=== PATIENT | male | born 1985 | race African-American/Black ===

== ENCOUNTER 2017-11-18 16:11 | Emergency (ER) | payer BC ==
--- NOTE | 2017-11-18 16:34 | EDM.PDOC ---
ED HPI GENERAL MEDICAL PROBLEM - General Chief Complaint: General Stated Complaint: CHILLS, LEFT FOOT PAIN Time Seen by Provider: 11/18/17 16:25 Source of Information: Reports: Patient, Other ([facility]). Denies: Old Records (No [facility] records available) History Limitations: Reports: No Limitations - History of Present Illness INITIAL COMMENTS - FREE TEXT/NARRATIVE: The patient was brought to the emergency room via transport vehicle from [facility] for evaluation of a 3 week history of intermittent fever and chills with temperature not measured. No known exposure to infection with no recent use of antipyretic medication. He has been having some occasional left foot and lower leg warm sensation and possible swelling with no history of recent significant injury, etc.. His arthritis is otherwise stable with no previous history of gout. The patient denies any chest pain/pressure, heart flutter, dizziness, orthostasis, orthopnea, diaphoresis, paresthesias, recent decreased exercise tolerance, or any other anginal-type symptoms. No recent history of abdominal pain, nausea, diarrhea, melena, gross hematochezia, or any food intolerance, including fatty foods, etc. although he has been having some heartburn recently likely secondary to noncompliance with his previous Protonix and/or Prilosec, with normal bowel movement earlier today. He also complains of some mild dysuria without gross hematuria, colic, etc.. He denies any recent cough dyspnea wheezing, etc. Onset: Gradual Duration: Week(s): (3 weeks as above) Location: Reports: Abdomen (Heartburn), Lower Extremity, Left (As above). Denies: Head, Face, Neck, Chest, Back, Pelvis, Upper Extremity, Left, Upper Extremity, Right, Lower Extremity, Right, Generalized, Radiates to Quality: Reports: Ache, Burning, Dull, Same as Previous Episode Severity: Mild Improves with: Reports: None Worsens with: Reports: None Context: Reports: Other (As above) Associated Symptoms: Reports: Fever/Chills. Denies: Chest Pain, Cough, cough w sputum, Diaphoresis, Headaches, Loss of Appetite, Nausea/Vomiting, Seizure, Shortness of Breath, Syncope, Weakness Treatments PRIMARY SCHOOL PRINCIPAL: Reports: Other (see below) (None) Epigastric Pain Score (Numeric/FACES): 6 - Related Data Allergies Allergy/AdvReac Type Severity Reaction Status Date / Time No Known Allergies Allergy Verified 11/18/17 16:21 Home Meds: Home Meds Cholecalciferol (Vitamin D3) [Vitamin D3] 2,000 unit PO DAILY 11/18/17 [History] Omeprazole Magnesium [Prilosec Otc] 20 mg PO ACBREAKFAST #30 tablet. 11/18/17 [Rx] Past Medical History HEENT History: Reports: None. Denies: Allergic Rhinitis, Hard of Hearing, Impaired Vision, Retinal Detachment Cardiovascular History: Reports: Other (See Below). Denies: Afib, Aneurysm, Arrhythmia, Blood Clots/VTE/DVT, CAD, Heart Murmur, High Cholesterol, Hypertension, [place], Syncope Other Cardiovascular History: He doesn't know cholesterol status although history of fatty liver as below.. Respiratory History: Reports: None. Denies: Asthma, COPD, Intubation, Difficult , Intubation, Previous, PE, Pneumothorax, Pulmonary Fibrosis, Sleep Apnea, TB Gastrointestinal History: Reports: Chronic Constipation, GERD, Other (See Below) . Denies: Celiac Disease, Cholelithiasis, Chronic Diarrhea, Fecal Incontinence , Gastritis, GI Bleed, Hepatitis, Inflammatory Bowel Disease, Irritable Bowel Syndrome, Jaundice, Pancreatitis, PUD Other Gastrointestinal History: LFTs elevation secondary to fatty liver. Genitourinary History: Reports: Chronic Renal Insuffiency, Renal Calculus, Other (See Below). Denies: Acute Renal Failure, BPH, Retention, Urinary, STD, Urinary Incontinence, UTI, Recurrent Other Genitourinary History: Stage III chronic renal insufficiency. Urolithiasis side unknown with spontaneous passage Musculoskeletal History: Reports: Arthritis, Back Pain, Chronic, Gout, Other ( See Below). 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 Denies: Cerebral Aneurysms, Concussion, Head Trauma, Migraines, Seizure Psychiatric History: Reports: None. Denies: Abuse, Victim of, ADD, ADHD, Addiction, Anxiety, Depression, Psych Hospitalization(s), PTSD, Suicide Attempt , Suicidal Ideation Endocrine/Metabolic History: Reports: Vitamin D Deficiency. Denies: Diabetes, Type I, Diabetes, Type II, Diabetes Mellitus, Type 3c, Hypothyroidism, IDDM Hematologic History: Reports: Other (See Below). Denies: Anemia, Blood Transfusion(s), Iron Deficiency Other Hematologic History: Nonspecific thrombocytopenia. Immunologic History: Denies: None, AIDS, HIV, SLE Oncologic (Cancer) History: Reports: None. Denies: Basal Cell Carcinoma, Hodgkin's Lymphoma, Leukemia, Lymphoma, Malignant Melanoma, Non-Hodgkin's Lymphoma, Squamous Cell Carcinoma Dermatologic History: Reports: None. Denies: Eczema, Psoriasis - Infectious Disease History Infectious Disease History: Reports: None. Denies: C-Difficile, Chicken Pox, Helicobacter Pylori, Measles, Meningitis, Mononucleosis, MRSA, Mumps, Rheumatic Fever, Rubella, Scarlet Fever, Shingles, TB, VRE - Past Surgical History Head Surgeries/Procedures: Reports: None HEENT Surgical History: Reports: Oral Surgery, Other (See Below). Denies: Adenoidectomy, Eye Surgery, Laser Surgery, LASIK, Myringotomy w Tube(s), Naso- Sinus Surgery, Tonsillectomy Other HEENT Surgeries/Procedures: Tooth extraction Cardiovascular Surgical History: Reports: None. Denies: Varicose Respiratory Surgical History: Reports: None. Denies: Thoracentesis GI Surgical History: Reports: EGD, Other (See Below). Denies: Appendectomy, Cholecystectomy, Colonoscopy, Hernia, Abdominal, Hernia, Inguinal, Hernia Repair /Other Other GI Surgeries/Procedures: EGD on 12/30/16. Male Surgical History: Reports: Circumcision. Denies: Vasectomy Other Male Surgeries/Procedures: Circumcision as an . Endocrine Surgical History: Reports: None. Denies: Thyroid Biopsy Neurological Surgical History: Reports: None. Denies: C-Spine, Discectomy, Laminectomy, Lumbar Spine, Sacral Spine, Spinal Fusion, Thoracic Spine, Vertebroplasty Musculoskeletal Surgical History: Reports: None. Denies: Arthroscopic Procedure , Carpal Tunnel, Ganglion Cyst, Joint Replacement, ORIF, Shoulder Surgery Oncologic Surgical History: Reports: None Dermatological Surgical History: Reports: None - Past Imaging History Past Imaging History: Reports: CAT Scan (CT of the abdomen and pelvis on 03/23/16 ), Ultrasound (Abdominal ultrasound on 06/15/14) Social & Family History - Family History Cardiac: Reports: Hypertension, Other (See Below) Other Cardiac Family History: Parents with hypertension. - Tobacco Use Smoking Status *Q: Never Smoker Tobacco Use Within Last Twelve Months: No Used Tobacco, but Quit: No Smoking Cessation Information Provided To Patient: No Second Hand Smoke Exposure: No Second Hand Smoke Education Provided: No - Caffeine Use Caffeine Use: Reports: None. Denies: Coffee, Energy Drinks, Soda, Tea - Alcohol Use Alcohol Use History: Yes Days Per Week of Alcohol Use: 0 Number of Drinks Per Day Comment: No previous DWIs, problems with alcohol abuse , etc. Alcohol Use in Last Twelve Months: No - Recreational Drug Use Recreational Drug Use: No Drug Use in Last 12 Months: No Recreational Drug Type: Denies: Amphetamines (Speed), Cocaine, Heroin, Inhalants (Glues, Solvents, Aerosols), LSD (Acid), Marijuana/Hashish, Methamphetamine, Morphine, Oxycodone - Living Situation & Occupation Living situation: Reports: with Significant Other (No children) Occupation: Employed ([employer]) ED ROS GENERAL - Review of Systems Review Of Systems: ROS reveals no pertinent complaints other than HPI. ED EXAM, GENERAL - Physical Exam Exam: See Below Exam Limited By: Language Barrier (Mild) General Appearance: Alert, WD/WN, No Apparent Distress Eye Exam: Bilateral Eye: EOMI, Normal Inspection (No nystagmus), PERRL Ears: Normal External Exam, Normal Canal, Hearing Grossly Normal, Normal TMs Nose: Normal Inspection, Normal Mucosa, No Blood Throat/Mouth: Normal Inspection, Normal Lips, Normal Teeth, Normal Gums, Normal Oropharynx, Normal Voice, No Airway Compromise. No: Dysphagia, Perioral Cyanosis Head: Atraumatic, Normocephalic. No: Facial Swelling, Facial Tenderness, Sinus Tenderness Neck: Normal Inspection, Supple, Non-Tender, Full Range of Motion. No: Carotid Bruit, Lymphadenopathy (L), Lymphadenopathy (R), Thyromegaly Respiratory/Chest: No Respiratory Distress, Lungs Clear, Normal Breath Sounds, No Accessory Muscle Use, Chest Non-Tender. No: Pleural Rub, Retractions Cardiovascular: Normal Peripheral Pulses, Regular Rate, Rhythm (Occasional borderline bradycardia), No Edema, No Gallop, No JVD, No Murmur, No Rub. No: Gallop/S3, Gallop/S4, Friction Rub Peripheral Pulses: 2+: Radial (L), Radial (R), Dorsalis Pedis (L), Dorsalis Pedis (R) GI/Abdominal: Normal Bowel Sounds, Soft, Non-Tender, No Organomegaly, No Distention, No Abnormal Bruit, No Mass. No: Guarding (Male) Exam: Deferred Rectal (Males) Exam: Deferred Back Exam: Normal Inspection, Full Range of Motion. No: CVA Tenderness (L), CVA Tenderness (R), Muscle Spasm Extremities: Normal Range of Motion, No Pedal Edema, Normal Capillary Refill, Leg Pain (Minimal localized swelling with borderline palpation pain over the lateral dorsal surface of the fifth metatarsal of the left foot with no local warming, erythema, etc.). No: Radha's Sign Neurological: Alert, Oriented, CN II-XII Intact, Normal Cognition, Normal Gait, Normal Reflexes, No Motor/Sensory Deficits Psychiatric: Normal Affect, Normal Mood Skin Exam: Warm, Dry, Intact, Normal Color, No Rash. No: Wound/Incision Lymphatic: No Adenopathy Course - Vital Signs Last Recorded V/S: Last Vital Signs Temp 36.8 C 11/18/17 16:12 Pulse 52 L 11/18/17 16:12 Resp 16 11/18/17 16:12 BP 140/87 11/18/17 16:12 Pulse Ox 99 11/18/17 16:12 Vital Signs - 24 hr 11/18/17 16:12 Temperature [ 36.8 C Temporal] Pulse, 52 L Peripheral [ Left Pulse Oximetry] Respiratory 16 Rate Blood Pressure 140/87 [Right Upper Arm] O2 Sat by Pulse 99 Oximetry - Orders/Labs/Meds Orders: Active Orders 24 hr Category Date Time Status CULTURE URINE [RM] Routine Lab 11/18/17 16:38 Ordered URINALYSIS W/MICROSCOPIC [UA W/MICROSCOPIC] [URIN] Lab 11/18/17 16:55 Ordered Routine Obtain Past Medical Record [OM.PC] Routine Oth 11/18/17 16:34 Active Labs: Laboratory Tests 11/18/17 11/18/17 11/18/17 Range/Units 16:50 16:50 16:50 WBC 5.5 (4.0-10.2) K/uL RBC 7.04 H (4.33-5.41) M/uL Hgb 15.1 (13.1-16.8) g/dL Hct 45.5 (39.0-49.0) % MCV 64.6 L (84.0-98.0) fL MCH 21.4 L (28.2-33.3) pg MCHC 33.2 (31.7-36.0) g/dL RDW 18.2 H (11.2-14.1) % Plt Count 164 (150-350) K/uL Neut % (Auto) 43.9 L (45.0-80.0) % Lymph % (Auto) 35.0 (10.0-50.0) % [place] % (Auto) 8.4 (2.0-14.0) % Eos % (Auto) 12.3 H (0.0-5.0) % Baso % (Auto) 0.4 (0.0-2.0) % Neut # (Auto) 2.39 (1.40-7.00) K/uL Lymph # (Auto) 1.91 (0.50-3.50) K/uL [place] # (Auto) 0.46 (0.00-1.00) K/uL Eos # (Auto) 0.67 H (0.00-0.50) K/uL Baso # (Auto) 0.02 (0.00-0.20) K/uL Sodium 142 (136-145) mmol/L Potassium 3.7 (3.5-5.1) mmol/L Chloride 103 (98-107) mmol/L Carbon Dioxide 29.9 (21.0-32.0) mmol/L BUN 12 (7-18) mg/dL Creatinine 1.43 H (0.51-1.17) mg/dL Est Cr Clr Drug Dosing 76.57 mL/min Estimated GFR (MDRD) 57 mL/min Glucose 92 (74-106) mg/dL Lactic Acid (0.4-2.0) mmol/L Uric Acid 6.0 (2.6-7.2) mg/dL Calcium 9.5 (8.5-10.1) mg/dL Total Bilirubin 0.8 (0.2-1.0) mg/dL AST 25 (15-37) U/L ALT 17 (12-78) U/L Alkaline Phosphatase 65 (46-116) IU/L Creatine Kinase (26-308) U/L Creatine Kinase Index (0.0-2.5) % CK-MB (CK-2) (0.00-3.60) ng/mL Total Protein 8.2 (6.4-8.2) g/dL Albumin 4.2 (3.4-5.0) g/dL Specimen Type Urine Color Urine Appearance Urine pH (5.0-9.0) Ur Specific [place] (1.005-1.030) Urine Protein (NEGATIVE) mg/dL Urine Glucose (UA) (NEGATIVE) mg/dL Urine Ketones (NEGATIVE) mg/dL Urine Occult Blood (NEGATIVE) Urine Nitrite (NEGATIVE) Urine Bilirubin (NEGATIVE) Urine Urobilinogen (0.2-1.0) E.U./dL Ur Leukocyte Esterase (NEGATIVE) Urine RBC /HPF Urine WBC /HPF Ur Epithelial Cells /LPF Urine Bacteria (NONE TO FEW) /HPF 11/18/17 11/18/17 11/18/17 Range/Units 16:50 16:50 16:55 WBC (4.0-10.2) K/uL RBC (4.33-5.41) M/uL Hgb (13.1-16.8) g/dL Hct (39.0-49.0) % MCV (84.0-98.0) fL MCH (28.2-33.3) pg MCHC (31.7-36.0) g/dL RDW (11.2-14.1) % Plt Count (150-350) K/uL Neut % (Auto) (45.0-80.0) % Lymph % (Auto) (10.0-50.0) % [place] % (Auto) (2.0-14.0) % Eos % (Auto) (0.0-5.0) % Baso % (Auto) (0.0-2.0) % Neut # (Auto) (1.40-7.00) K/uL Lymph # (Auto) (0.50-3.50) K/uL [place] # (Auto) (0.00-1.00) K/uL Eos # (Auto) (0.00-0.50) K/uL Baso # (Auto) (0.00-0.20) K/uL Sodium (136-145) mmol/L Potassium (3.5-5.1) mmol/L Chloride (98-107) mmol/L Carbon Dioxide (21.0-32.0) mmol/L BUN (7-18) mg/dL Creatinine (0.51-1.17) mg/dL Est Cr Clr Drug Dosing mL/min Estimated GFR (MDRD) mL/min Glucose (74-106) mg/dL Lactic Acid 0.8 (0.4-2.0) mmol/L Uric Acid (2.6-7.2) mg/dL Calcium (8.5-10.1) mg/dL Total Bilirubin (0.2-1.0) mg/dL AST (15-37) U/L ALT (12-78) U/L Alkaline Phosphatase (46-116) IU/L Creatine Kinase 532 H (26-308) U/L Creatine Kinase Index 0.3 (0.0-2.5) % CK-MB (CK-2) 1.80 (0.00-3.60) ng/mL Total Protein (6.4-8.2) g/dL Albumin (3.4-5.0) g/dL Specimen Type Urincc Urine Color Light yellow Urine Appearance Clear Urine pH 7.5 (5.0-9.0) Ur Specific [place] 1.010 (1.005-1.030) Urine Protein Negative (NEGATIVE) mg/dL Urine Glucose (UA) Negative (NEGATIVE) mg/dL Urine Ketones Negative (NEGATIVE) mg/dL Urine Occult Blood Negative (NEGATIVE) Urine Nitrite Negative (NEGATIVE) Urine Bilirubin Negative (NEGATIVE) Urine Urobilinogen 0.2 (0.2-1.0) E.U./dL Ur Leukocyte Esterase Negative (NEGATIVE) Urine RBC Not seen /HPF Urine WBC Not seen /HPF Ur Epithelial Cells Rare /LPF Urine Bacteria Not seen (NONE TO FEW) /HPF Meds: Medications Discontinued Medications Generic Name Dose Route Start Last Admin Trade Name Freq PRN Reason Stop Dose Admin Methylprednisolone Acetate 80 mg 11/18/17 17:59 11/18/17 18:03 Depo-Medrol IM 11/18/17 18:00 80 mg ONETIME ONE Administration Departure - Departure Time of Disposition: 18:20 Disposition: Home, Self-Care 01 Condition: Good Clinical Impression: Peptic reflux disease, Thrombocytopenia, Renal insufficiency, Hyperuricemia, Elevated CK, Elevated LFTs, Nephrolithiasis - Discharge Information Prescriptions: Omeprazole Magnesium [Prilosec Otc] 20 mg PO ACBREAKFAST #30 tablet. Instructions: Creatine Kinase Test, Low-Purine Eating Plan, Heart-Healthy Eating Plan, [id number], Fat and Cholesterol Restricted Diet, [id number] Referrals: PCP,Unknown [Primary Care Provider] - Forms: ED Department Discharge Additional Instructions: 1. Follow up with your regular provider in 10-14 days for reevaluation and recommended repeat CBC, basic metabolic panel, CK, CK-MB, and 12 hour fasting lipid profile with further workup including possible muscle biopsy in the future depending on follow-up test results. Bring these discharge instructions with you to that visit.. 2. Tylenol 650 mg by mouth every 4 hours and/or OTC ibuprofen 2-3 tabs by mouth every 6 hours with food as directed./needed. 3. Compliance with Prilosec strongly encouraged 4. Work excuse- See Form 5. BenGay or equivalent, heating pad, and/or ice packs as directed. 6. Immediately after this visit verify that your cellular telephone's voicemail has been activated and is empty. Also verify that your home telephone 's answering machine is operating properly and has space to receive messages. Note that it is sometimes necessary for us to be able to contact you at a later date to discuss your medical care. 7. Avoid excessive exercise as discussed with continuation of encouragement of oral fluids as before. - Problem List & Annotations (1) Elevated CK SNOMED Code(s): 477400543 Code(s): R74.8 - ABNORMAL LEVELS OF OTHER SERUM ENZYMES Status: Chronic Priority: Medium Annotation/Comment:: CK significantly elevated today with normal CK-MB. Probable myositis of unknown etiology. IM Depo-Medrol given today with consideration of short course of oral steroids at follow-up, if CK elevation persists. Patient would also benefit from a muscle biopsy prior to initiation of oral prednisone as further workup. Patient denies any recent significant exercise, weight lifting, injury, running, etc. Activity restrictions as discussed with oral fluids to be encouraged. Work excuse provided. (2) Hyperuricemia SNOMED Code(s): 17895224 Code(s): E79.0 - HYPERURICEMIA W/O SIGNS OF INFLAM ARTHRIT AND TOPHACEOUS DIS Status: Chronic Priority: Medium Annotation/Comment:: Normal uric acid level today. Patient provided information concerning gout diet. Encourage oral fluids. Symptomatic relief as per discharge instructions with no direct evidence of an acute gout attack in his left leg/foot. No evidence of local signs of infection with no leukocytosis, etc. (3) Peptic reflux disease SNOMED Code(s): 514544957 Code(s): K21.9 - GASTRO-ESOPHAGEAL REFLUX DISEASE WITHOUT ESOPHAGITIS Status: Chronic Priority: Medium Annotation/Comment:: Compliance with Prilosec was encouraged. (4) Elevated LFTs SNOMED Code(s): 995533487, 316090893 Code(s): R94.5 - ABNORMAL RESULTS OF LIVER FUNCTION STUDIES Status: Chronic Priority: Medium Annotation/Comment:: No LFTs elevation today with previous extensive GI workup during the last couple of years at [facility] in [place] as above, including GI consultation, negative hepatitis panel , etc.. Patient was instructed to have a lipid panel at follow-up secondary to his previous history of fatty liver. Dietary dietary information given. (5) Nephrolithiasis SNOMED Code(s): 33083683 Code(s): N20.0 - CALCULUS OF KIDNEY Status: Chronic Priority: Medium Annotation/Comment:: Distant history of urolithiasis and hyperuricemia. Dietary information as above provided to the patient. (6) Renal insufficiency SNOMED Code(s): 398064193, 095350337 Code(s): N28.9 - DISORDER OF KIDNEY AND URETER, UNSPECIFIED Status: Acute Priority: Medium Annotation/Comment:: Chronic renal insufficiency with significantly improved creatinine level in comparison to previous blood work from [facility]. Continue to observe closely by his regular providers with basic metabolic panel follow-up. (7) Thrombocytopenia SNOMED Code(s): 682380874 Code(s): D69.6 - THROMBOCYTOPENIA, UNSPECIFIED Status: Chronic Priority: Medium Annotation/Comment:: No thrombocytopenia today. Mild microcytosis noted. Repeat CBC at follow-up. Further workup depending on his clinical course. - Problem List Review Problem List Initiated/Reviewed/Updated: Yes - My Orders Last 24 Hours: My Active Orders 11/18/17 16:34 Obtain Past Medical Record [OM.PC] Routine 11/18/17 16:38 CULTURE URINE [RM] Routine 11/18/17 16:55 URINALYSIS W/MICROSCOPIC [UA W/MICROSCOPIC] [URIN] Routine - Assessment/Plan Last 24 Hours: My Active Orders 11/18/17 16:34 Obtain Past Medical Record [OM.PC] Routine 11/18/17 16:38 CULTURE URINE [RM] Routine 11/18/17 16:55 URINALYSIS W/MICROSCOPIC [UA W/MICROSCOPIC] [URIN] Routine Assessment:: As above Plan: As above. Extensive precautions were given to the patient, who is in agreement with the treatment plan. See Patient Instructions for further treatment and plan.
[2017-11-18] MEDS: methylPREDNISolone Acetate 80 MG/ML SDV IM ONE (18:03)
== END 2017-11-18 18:17 | disposition home or self-care (01) ==
LOC: LL.ED 16:11
DX: N20.0 Calculus of kidney (principal); I12.9 Hypertensive chronic kidney disease with stage 1 through stage 4 chronic kidney disease, or unspecified chronic kidney disease; N18.9 Chronic kidney disease, unspecified; D69.6 Thrombocytopenia, unspecified; R94.5 Abnormal results of liver function studies; R74.8 Abnormal levels of other serum enzymes; K21.9 Gastro-esophageal reflux disease without esophagitis; Z79.899 Other long term (current) drug therapy
CPT/HCPCS: 36415; 80053; 81001; 82550; 82553; 83605; 84550; 85025; 87086; 96372; 99283; J1040

== ENCOUNTER 2021-09-29 09:21 | Emergency (ER) | payer OTHER, BC ==
[2021-09-29] MEDS: Lidocaine 1% 5 ML VIAL INJECT ONE (10:53)
[2021-09-29] MEDS: Bacitracin Oint 1 GM U/D Packet TOP ONE (10:53)
== END 2021-09-29 11:05 | disposition home or self-care (01) ==
LOC: LL.ED 09:21
DX: S61.411A Laceration without foreign body of right hand, initial encounter (principal); K21.9 Gastro-esophageal reflux disease without esophagitis; N18.30 Chronic kidney disease, stage 3 unspecified; D63.1 Anemia in chronic kidney disease; W26.8XXA Contact with other sharp object(s), not elsewhere classified, initial encounter
CPT/HCPCS: 12001; 99282-25; 99283